=== PATIENT | male | born 1975 | race Caucasian/White ===

== ENCOUNTER 2019-07-06 17:46 | Inpatient (IN) | payer OTHER ==
[~2019-07-06] VITALS: Ht 180.3 cm; Wt 133.9 kg
--- NOTE | 2019-07-06 18:14 | NUR ---
THIS IS A 44 YO MALE BIB [facility] FOR SYNCOPAL EPISODE WHILE ON TOILET TODAY, PATIENT STATES "I FELT REALLY DIZZY/WEAK AND LIGHTHEADED, AND MY VISION BLURRED. WHEN I WOKE UP MY WAS THERE, SHE GAVWE ME ORANGE JUICE THAT PERKED ME UP A BIT. BUT I STILL DIDN'T FEEL RIGHT SO I CALLED 911". PATIENT SKIN IS COOL, PALE, AND DIAPHORETIC. PATIENT IS ANXIOUS AT THIS TIME, A&OX4, DENIES DIZZINESS AT THIS TIME, VISION IS CLEAR, PERRLA. PIV PLACED IN FIELD, APPROX 150ML GIVEN BY EMS. PATIENT STATES "THE PAST COUPLE DAYS I'VE HAD SOME INDIGESTION, AND THE PHLEGM I PRODUCE MAKES ME DRY HEAVE, AND HAVE LOW BACK PAIN". ALL MONITORING IN PLACE, PATIENT IS TACHYCARDIC AND HYPOTENSIVE, ERP AWARE. IVF STARTED BY EMS RUNNING AT THIS TIME FOR HYPOTENSION. CALL LIGHT IN REACH
--- NOTE | 2019-07-06 18:14 | NUR ---
BGL IN FIELD 256
--- NOTE | 2019-07-06 18:15 | NUR ---
PATIENT'S BENSON-ANAL AREA CLEANED, STOOL APPEARS DARK. WILL NOTIFY ERP.
--- NOTE | 2019-07-06 18:21 | NUR ---
ERP TO ROOM FOR EVAL
--- NOTE | 2019-07-06 18:24 | NUR ---
IVF STARTED BY EMS CONTINUED PER MD ZIA ORDERS
[2019-07-06] MEDS ORDERED: SODIUM CHLORIDE FLUSH 10ML SYR IVF ONE (18:30)
[2019-07-06] MEDS ORDERED: SODIUM CHLORIDE 0.9% 1,000ML IVBOLUS ONE ×2 (18:30→19:30)
--- NOTE | 2019-07-06 18:40 | NUR ---
SECOND PIV PLACED IN L AC. IVF STARTED BY EMS STOPPED. NEW LITER OF NORMAL SALINE HUNG
[2019-07-06 18:55] LABS: MEAN CORPUSCULAR HEMOGLOBIN 27.5 pg (27.5-34.5); MEAN CORPUSCULAR HGB CONC 32.3 g/dL (33.2-36.2); MEAN CORPUSCULAR VOLUME 85.1 fL (81-97); MEAN PLATELET VOLUME 8.6 fL (7.4-10.4); PLATELET COUNT 426 x10^3/uL (130-400); RED BLOOD COUNT 3.86 x10^6/uL (4.38-5.82); RED CELL DISTRIBUTION WIDTH 15.6 % (9.4-14.8)
--- NOTE | 2019-07-06 18:55 | NUR ---
PATIENT REQUESTING THIS RN TO CALL FOR UPDATE, AND VERIFIEDOKAY TO SHARE PATIENT INFORMATION. CALLED PATIENT'S , UPDATED ON PLAN OF CARE
[2019-07-06 19:05] LABS: ALANINE AMINOTRANSFERASE 22 U/L (12-78); ALBUMIN 2.9 g/dL (3.4-5.0); ANION GAP 12 mmol/L (5-15); CALCIUM 7.9 mg/dL (8.5-10.1); CHLORIDE 108 mmol/L (98-107); CREATININE 1.22 mg/dL (0.7-1.3); INTERNATIONAL NORMALIZED RATIO 1.08 (0.93-1.1); PROTHROMBIN TIME 11.5 Seconds (9.6-11.5)
[2019-07-06 19:07] LABS: ALKALINE PHOSPHATASE 77 U/L (45-117); BILIRUBIN,TOTAL 0.5 mg/dL (0.2-1.0); TOTAL PROTEIN 6.4 g/dL (6.4-8.2)
[2019-07-06 19:17] LABS: BASOPHILS # (AUTO) 0.06 x10^3/uL (0-0.1); BASOPHILS % (AUTO) 0 % (0-1); EOSINOPHILS # (AUTO) 0.13 x10^3/uL (0-0.4); EOSINOPHILS % (AUTO) 1 % (1-7); LYMPHOCYTES # (AUTO) 2.04 x10^3/uL (1-3.4); LYMPHOCYTES % (AUTO) 9 % (22-44); MD SCAN; MONOCYTES # (AUTO) 0.98 x10^3/uL (0.2-0.8); MONOCYTES % (AUTO) 4 % (2-9); NEUTROPHILS # (AUTO) 20.61 x10^3/uL (1.8-6.8); NEUTROPHILS % (AUTO) 87 % (42-75)
--- NOTE | 2019-07-06 19:18 | NUR ---
SECOND LITER IVF STARTED. PATIENT TO CT
[2019-07-06] MEDS ORDERED: PANTOPRAZOLE 80 MG in SODIUM CHLORIDE 0.9% 50 ML IVPB ONE (20:12)
[2019-07-06] MEDS ORDERED: PANTOPRAZOLE 80 MG in SODIUM CHLORIDE 0.9% 100 ML IV SCH (20:30)
--- NOTE | 2019-07-06 20:31 | NUR ---
ADMITTING MD IN ROOM PHARMACY SLIP SENT FOR PROTONIX
--- NOTE | 2019-07-06 20:45 | NUR ---
REPORT GIVEN TO MOY CEE. PLAN OF CARE DISCUSSED. SECOND LITER OF FLUID AND PROTONIX INFUSING AT TIME OF TRANSFER
[2019-07-06] MEDS ORDERED: SODIUM CHLORIDE 0.9% 1,000 ML IV ONE (21:00)
[2019-07-06] MEDS ORDERED: SODIUM CHLORIDE FLUSH 10ML SYR IVF PRN (21:00)
[2019-07-06 21:15] VITALS: BP 96/58
[2019-07-06] MEDS ORDERED: BISACODYL 10 MG SUPP PR PRN (21:30)
[2019-07-06] MEDS ORDERED: ONDANSETRON 2MG/ML, 2ML IVPush PRN (21:30)
[2019-07-06] MEDS ORDERED: morphine SULFATE 10 MG/ML, 1ML IVPush PRN (21:30)
[2019-07-06] MEDS: PANTOPRAZOLE 80 MG in SODIUM CHLORIDE 0.9% 100 ML IV SCH (21:41)
[2019-07-06] MEDS: SODIUM CHLORIDE 0.9% 1,000 ML IV SCH (21:52)
[2019-07-06] MEDS ORDERED: POTASSIUM CHLORIDE 20 MEQ in SODIUM CHLORIDE 0.9% 250 ML IV ONE (22:00)
[2019-07-06] MEDS ORDERED: METOCLOPRAMIDE 5 MG/ML, 2ML IVPush ONE ×2 (22:00)
[2019-07-06] MEDS ORDERED: OMNIPAQUE 350 MG/ML, 100ML BOTTLE ONE (22:01)
[2019-07-06] MEDS ORDERED: LORazepam 2 MG/ML, 1ML IVPush PRN (22:30)
[2019-07-07] MEDS: MEROPENEM 1 GM in SODIUM CHLORIDE 0.9% 100 ML IV SCH ×3 (00:21→16:56)
[2019-07-07 01:54] LABS: ANION GAP 7 mmol/L (5-15); CALCIUM 7.2 mg/dL (8.5-10.1); CHLORIDE 114 mmol/L (98-107); CREATININE 0.82 mg/dL (0.7-1.3)
[2019-07-07 02:00] VITALS: BP 104/69
[2019-07-07 04:01] LABS: MICROSCOPIC AUTO
[2019-07-07] MEDS: PANTOPRAZOLE 80 MG in SODIUM CHLORIDE 0.9% 100 ML IV SCH ×2 (05:58→17:50)
[2019-07-07 07:05] VITALS: BP 146/92
[2019-07-07 08:16] LABS: MEAN CORPUSCULAR HEMOGLOBIN 27.7 pg (27.5-34.5); MEAN CORPUSCULAR HGB CONC 32.7 g/dL (33.2-36.2); MEAN CORPUSCULAR VOLUME 84.7 fL (81-97); MEAN PLATELET VOLUME 8.7 fL (7.4-10.4); PLATELET COUNT 363 x10^3/uL (130-400); RED BLOOD COUNT 3.05 x10^6/uL (4.38-5.82); RED CELL DISTRIBUTION WIDTH 15.1 % (9.4-14.8)
[2019-07-07 09:17] LABS: BASOPHILS # (AUTO) 0.07 x10^3/uL (0-0.1); BASOPHILS % (AUTO) 1 % (0-1); EOSINOPHILS # (AUTO) 0.02 x10^3/uL (0-0.4); EOSINOPHILS % (AUTO) 0 % (1-7); LYMPHOCYTES # (AUTO) 2.17 x10^3/uL (1-3.4); LYMPHOCYTES % (AUTO) 19 % (22-44); MD SCAN; MONOCYTES # (AUTO) 0.76 x10^3/uL (0.2-0.8); MONOCYTES % (AUTO) 7 % (2-9); NEUTROPHILS # (AUTO) 8.14 x10^3/uL (1.8-6.8); NEUTROPHILS % (AUTO) 73 % (42-75)
[2019-07-07] MEDS: SODIUM CHLORIDE 0.9% 1,000 ML IV SCH ×2 (11:34→23:34)
[2019-07-07 12:05] VITALS: BP 124/82
[2019-07-07] MEDS ORDERED: PROPOFOL 50 ML ONE (15:16)
[2019-07-07] MEDS ORDERED: FENTANYL PF 100 MCG/2ML IV PRN (15:30)
[2019-07-07] MEDS ORDERED: MIDAZOLAM 1 MG/ML, 2ML IV PRN (15:30)
[2019-07-07] MEDS ORDERED: ONDANSETRON 2MG/ML, 2ML IVPush PRN (15:30)
[2019-07-07 20:41] VITALS: BP 127/82
[2019-07-08] VITALS (8 sets, daily range): BP systolic 126–156; BP diastolic 84–97
[2019-07-08] MEDS: MEROPENEM 1 GM in SODIUM CHLORIDE 0.9% 100 ML IV SCH ×3 (01:21→16:46)
[2019-07-08 03:15] LABS: MEAN CORPUSCULAR HEMOGLOBIN 27.5 pg (27.5-34.5); MEAN CORPUSCULAR HGB CONC 32.3 g/dL (33.2-36.2); MEAN CORPUSCULAR VOLUME 85.3 fL (81-97); MEAN PLATELET VOLUME 7.7 fL (7.4-10.4); PLATELET COUNT 304 x10^3/uL (130-400); RED BLOOD COUNT 2.59 x10^6/uL (4.38-5.82); RED CELL DISTRIBUTION WIDTH 16.4 % (9.4-14.8)
[2019-07-08 04:05] LABS: BASOPHILS # (AUTO) 0.07 x10^3/uL (0-0.1); BASOPHILS % (AUTO) 1 % (0-1); EOSINOPHILS # (AUTO) 0.09 x10^3/uL (0-0.4); EOSINOPHILS % (AUTO) 1 % (1-7); LYMPHOCYTES # (AUTO) 1.71 x10^3/uL (1-3.4); LYMPHOCYTES % (AUTO) 24 % (22-44); MD SCAN; MONOCYTES # (AUTO) 0.47 x10^3/uL (0.2-0.8); MONOCYTES % (AUTO) 7 % (2-9); NEUTROPHILS # (AUTO) 4.83 x10^3/uL (1.8-6.8); NEUTROPHILS % (AUTO) 67 % (42-75)
[2019-07-08] MEDS: PANTOPRAZOLE 80 MG in SODIUM CHLORIDE 0.9% 100 ML IV SCH ×2 (04:18→16:46)
[2019-07-08] MEDS ORDERED: ACETAMINOPHEN 325 MG TABLET PO ONE (08:00)
[2019-07-08] MEDS ORDERED: DIPHENHYDRAMINE 12.5MG/5ML, 10ML UDC PO ONE (08:00)
[2019-07-08] MEDS: SODIUM CHLORIDE 0.9% 1,000 ML IV SCH ×2 (08:58→23:40)
[2019-07-08] MEDS ORDERED: MIDAZOLAM 1 MG/ML, 5ML ONE (13:14)
[2019-07-08] MEDS ORDERED: FLUMAZENIL 0.1 MG/1 ML, 5ML ONE (13:14)
[2019-07-08] MEDS ORDERED: FENTANYL PF 100 MCG/2ML ONE (13:14)
[2019-07-08] MEDS ORDERED: NALOXONE 1 MG/ML, 2ML ONE (13:14)
[2019-07-08] MEDS ORDERED: LIDOCAINE 1%, 10ML ONE (13:20)
[2019-07-09 00:40] VITALS: BP 156/82
[2019-07-09] MEDS: MEROPENEM 1 GM in SODIUM CHLORIDE 0.9% 100 ML IV SCH ×3 (00:52→17:36)
[2019-07-09] MEDS: PANTOPRAZOLE 80 MG in SODIUM CHLORIDE 0.9% 100 ML IV SCH ×2 (02:28→10:34)
[2019-07-09 05:47] LABS: BASOPHILS % (AUTO) 1 % (0-1); EOSINOPHILS # (AUTO) 0.27 x10^3/uL (0-0.4); EOSINOPHILS % (AUTO) 3 % (1-7); LYMPHOCYTES # (AUTO) 1.69 x10^3/uL (1-3.4); LYMPHOCYTES % (AUTO) 19 % (22-44); MD NO; MEAN CORPUSCULAR HEMOGLOBIN 27.2 pg (27.5-34.5); MEAN CORPUSCULAR HGB CONC 32.2 g/dL (33.2-36.2); MEAN CORPUSCULAR VOLUME 84.3 fL (81-97); MEAN PLATELET VOLUME 8.1 fL (7.4-10.4); MONOCYTES # (AUTO) 0.52 x10^3/uL (0.2-0.8); MONOCYTES % (AUTO) 6 % (2-9); NEUTROPHILS # (AUTO) 6.29 x10^3/uL (1.8-6.8); NEUTROPHILS % (AUTO) 71 % (42-75); PLATELET COUNT 312 x10^3/uL (130-400); RED BLOOD COUNT 2.93 x10^6/uL (4.38-5.82); RED CELL DISTRIBUTION WIDTH 16.5 % (9.4-14.8)
[2019-07-09 06:00] LABS: CHLORIDE 111 mmol/L (98-107)
[2019-07-09 06:15] LABS: ANION GAP 9 mmol/L (5-15); CALCIUM 8.1 mg/dL (8.5-10.1); CREATININE 0.55 mg/dL (0.7-1.3)
[2019-07-09 07:11] VITALS: BP 130/84
[2019-07-09] MEDS: SODIUM CHLORIDE 0.9% 1,000 ML IV SCH (09:33)
[2019-07-09 13:31] VITALS: BP 138/86
[2019-07-09] MEDS ORDERED: PANTOPRAZOLE 40 MG IV IVPush SCH (14:30)
[2019-07-09 19:17] VITALS: BP 125/83
[2019-07-09] MEDS ORDERED: PANTOPRAZOLE 80 MG in SODIUM CHLORIDE 0.9% 100 ML IV SCH (21:30)
[2019-07-10] MEDS: MEROPENEM 1 GM in SODIUM CHLORIDE 0.9% 100 ML IV SCH ×2 (00:54→09:15)
[2019-07-10 00:59] VITALS: BP 134/88
[2019-07-10] MEDS ORDERED: PANTOPRAZOLE 40MG TABLET PO SCH (06:00)
[2019-07-10 08:10] VITALS: BP 143/89
[2019-07-10] MEDS ORDERED: PANT40TA5 PO (09:44)
== END 2019-07-10 14:32 | disposition home or self-care (01) | DRG 356 ==
LOC: ED 19:47 → EDIP 20:23 → 4WST 20:56
PROVIDERS: ADMIT Internal Medicine; ATTEND Hospitalist
PROC: 0DJ08ZZ Inspection of Upper Intestinal Tract, Via Natural or Artificial Opening Endoscopic (ICD-10-PCS; 2019-07-07)
PROC: 30233N1 Transfusion of Nonautologous Red Blood Cells into Peripheral Vein, Percutaneous Approach (ICD-10-PCS; 2019-07-07)
PROC: 0T9B70Z Drainage of Bladder with Drainage Device, Via Natural or Artificial Opening (ICD-10-PCS; 2019-07-07)
PROC: 04L33DZ Occlusion of Hepatic Artery with Intraluminal Device, Percutaneous Approach (ICD-10-PCS; principal; 2019-07-08)
DX: K26.0 Acute duodenal ulcer with hemorrhage (principal); E43 Unspecified severe protein-calorie malnutrition; D62 Acute posthemorrhagic anemia; E87.2 Acidosis; R65.10 Systemic inflammatory response syndrome (SIRS) of non-infectious origin without acute organ dysfunction; Z68.41 Body mass index [BMI] 40.0-44.9, adult; D72.829 Elevated white blood cell count, unspecified; E66.01 Morbid (severe) obesity due to excess calories; E87.6 Hypokalemia; I95.9 Hypotension, unspecified; Z88.0 Allergy status to penicillin; D47.3 Essential (hemorrhagic) thrombocythemia; R79.89 Other specified abnormal findings of blood chemistry
CPT/HCPCS: 36415; 74018; 84145; 87338; 99285; J3490; 36430; 37244; 71045; 74150; 74177; 76937; 80048; 80053; 81001; 83605; 83690; 85014; 85018; 85025; 85610; 85730; 86850; 86900; 86923; 87040; 93005; 99156; 99157; C1894; G0378; J2185; J2250; J2704; J3010; J3480; Q9967; C1751; C1760; C1769; C1887; C9113; J2060; J2310; J2765; J7030; J7050; P9016